=== PATIENT | male | born 1950 | race Caucasian/White ===

== ENCOUNTER 2023-11-15 09:48 | Day surgery (SDC) | payer MEDICARE, OTHER, SELFPAY ==
[2023-11-13 11:26] VITALS: BMI 33.5
--- NOTE | 2023-11-14 10:03 | HO.ANESPROP2 ---
Documented by User: Era Gandhi NP 11/14/23 10:05 HPI - Anesthesia Eval Consult details Narrative: 73yo M for Bilateral Medial Rectus Eye Muscle Recession,Left Super Rectus Recession Medically optimized [facility] Past Medical History Medical History Psoriasis Impaired fasting glucose Hyperlipemia Dupuytren's contracture Hx of basal cell carcinoma Surgical History Surgical History History of dental surgery Hx of colonoscopy Social History Social History Patient Tobacco Use Status: Former Tobacco user Use of substances other than those prescribed or required for medical reasons: No Are you DNR?: No Advance Directives: No Advance Directives Information Provided: Yes Meds Allergies Allergy/AdvReac Type Severity Reaction Status Date / Time amlodipine Allergy Rash Verified 11/13/23 11:26 bee pollen [bee stings] Allergy Edema,Swell Verified 11/13/23 11:26 ing Home Medications ?Medication ?Instructions ?Recorded ?Confirmed ?Last Taken ?Type albuterol sulfate 90 mcg/actuation 2 puff inhalation Q6H PRN wheezing 11/13/23 11/13/23 Unknown History aerosol inhaler multivitamin 1 tab PO DAILY 11/13/23 11/13/23 Unknown History simvastatin 40 mg tablet 40 mg PO BEDTIME 11/13/23 11/13/23 Unknown History tadalafil 20 mg tablet 20 mg PO Q3D PRN intercourse 11/13/23 11/13/23 Unknown History vitamin B complex 1 tab PO DAILY 11/13/23 11/13/23 Unknown History Exam Height,Weight and Vital Signs: Height 5 ft 10.43 in Weight 107.3 kg Assessment and Plan Assessment Anesthesia Assessment: Chart Reviewed Documented by User: Mariama Madrid MD 11/15/23 14:42 [facility] Past Medical History Medical History Psoriasis Impaired fasting glucose Hyperlipemia Dupuytren's contracture Hx of basal cell carcinoma Surgical History Surgical History History of dental surgery Hx of colonoscopy History of Problems with Anesthesia: No Social History Social History Patient Tobacco Use Status: Former Tobacco user Use of substances other than those prescribed or required for medical reasons: No Are you DNR?: No Advance Directives: No Advance Directives Information Provided: Yes Meds Allergies Allergy/AdvReac Type Severity Reaction Status Date / Time amlodipine Allergy Rash Verified 11/13/23 11:26 bee pollen [bee stings] Allergy Edema,Swell Verified 11/13/23 11:26 ing Home Medications ?Medication ?Instructions ?Recorded ?Confirmed ?Last Taken ?Type albuterol sulfate 90 mcg/actuation 2 puff inhalation Q6H PRN wheezing 11/13/23 11/13/23 Unknown History aerosol inhaler multivitamin 1 tab PO DAILY 11/13/23 11/13/23 Unknown History simvastatin 40 mg tablet 40 mg PO BEDTIME 11/13/23 11/13/23 Unknown History tadalafil 20 mg tablet 20 mg PO Q3D PRN intercourse 11/13/23 11/13/23 Unknown History vitamin B complex 1 tab PO DAILY 11/13/23 11/13/23 Unknown History Exam Airway Mallampati Class: II TM Dist: >3cm Neck ROM: Full Partial: Upper Loose/Missing/Broken Teeth: Yes and Upper Heart: RRR Lungs: CTA Assessment and Plan Assessment Anesthesia Assessment: Anesthesia Plan Discussed Final Anesthetic Review History of Problems with Anesthesia: No NPO: Yes ASA Class: II Final Preanesthetic Review: Meds/Allgs Chart Reviewed, Consent Obtained/Reviewed and Anes Risks/Benef Reviewed Patient Risk: Low Procedure Risk: Low Anesthetic Plan Anesthetic Plan: GA Disposition: Standard PACU
[2023-11-15 11:40] VITALS: BMI 33.3
[2023-11-15 11:45] VITALS: BP 166/78; PULSE 90; RESP 18; TEMP 37.1; O2SAT 96
[2023-11-15] MEDS: Lactated Ringers 1,000 ML 100 ML IVCONT (13:11)
--- NOTE | 2023-11-15 17:45 | HO.OPHTHAL ---
Ophthalmology Operative Note Date of Service: 11/15/23 Narrative: Diagnoses 1. Esotropia 2. Left hypertropia. Procedures 1. Bilateral medial rectus recessions of 4 mm 2. Recession of left superior rectus [address] Peraza. Anesthesia general. Complications none. The patient was brought to the operating room placed under general anesthesia. The eyes were prepped and draped in the usual sterile ophthalmic fashion. A lid speculum was placed in the right eye and a peritomy was created around the medial rectus muscle. The muscle was hooked and secured with a double-armed Vicryl suture. It was disinserted from the globe and reattached to a position 4 mm behind the original insertion. Conjunctiva was closed with interrupted Vicryl sutures. An identical procedure was then performed on the left eye. A peritomy was then created around the superior rectus muscle of the left eye. The muscle was hooked and secured with a double-armed Vicryl suture. It was disinserted from the globe and reattached to a position 5 mm behind the original insertion. Conjunctiva was closed with interrupted Vicryl sutures. The patient was then awoken from general anesthesia and discharged to postoperative recovery in good condition.
[2023-11-15 17:53] VITALS: BP 145/80; PULSE 85; RESP 19; TEMP 36.3; O2SAT 100
[2023-11-15 17:58] VITALS: BP 156/78; PULSE 82; RESP 18; O2SAT 99
[2023-11-15 18:03] VITALS: BP 145/66; PULSE 84; RESP 18; O2SAT 99
[2023-11-15 18:08] VITALS: BP 152/75; PULSE 81; RESP 20; O2SAT 96
[2023-11-15 18:23] VITALS: BP 145/71; PULSE 81; RESP 18; TEMP 36.7; O2SAT 95
--- NOTE | 2023-11-16 06:51 | PC.NURSE ---
24hr update done on paper chart.
== END 2023-11-15 18:38 | disposition home or self-care (01) ==
LOC: HO.SSS 09:49
PROVIDERS: PCP Internal Medicine; Visit Provider Ophthalmology
PROC: (CPT 67311; principal; 2023-11-15 13:10)
DX: H50.00 Unspecified esotropia (principal); H50.22 Vertical strabismus, left eye; I10 Essential (primary) hypertension
CPT/HCPCS: 67311; 67314; J0131; J1100; J1596; J1885; J2250; J2371; J2405; J2704; J3010